=== PATIENT | female | born 1955 ===

== ENCOUNTER 2016-09-05 06:57 | Day surgery (SDC) | payer BC ==
[2016-09-02 10:21] VITALS: BMI 38.0
[2016-09-05] MEDS ORDERED: Lactated Ringer's 500 ML IV ONE (08:45)
[2016-09-05] MEDS ORDERED: Propofol 10 mg/ml Inj (20 ML) ONE (08:46)
[2016-09-05 11:46] VITALS: BP 118/59; PULSE 66; RESP 12; TEMP 97; O2SAT 100
== END 2016-09-05 10:45 | disposition home or self-care (01) ==
LOC: C.ENDO 06:57
PROVIDERS: ATTEND Internal Medicine Gastroenterology
DX: Z12.11 Encounter for screening for malignant neoplasm of colon (principal); D12.3 Benign neoplasm of transverse colon; K57.30 Diverticulosis of large intestine without perforation or abscess without bleeding; K64.1 Second degree hemorrhoids; K21.9 Gastro-esophageal reflux disease without esophagitis; I10 Essential (primary) hypertension; E11.9 Type 2 diabetes mellitus without complications; E78.5 Hyperlipidemia, unspecified; E66.01 Morbid (severe) obesity due to excess calories; M79.605 Pain in left leg; M79.604 Pain in right leg; Z98.890 Other specified postprocedural states; Z90.49 Acquired absence of other specified parts of digestive tract; Z90.710 Acquired absence of both cervix and uterus; Z79.84 Long term (current) use of oral hypoglycemic drugs; Z79.899 Other long term (current) drug therapy